=== PATIENT | female | born 1950 | race Hispanic/Latino ===

== ENCOUNTER 2018-06-26 13:04 | Emergency (ER) | payer MEDICARE, OTHER ==
[~2018-06-26] VITALS: Ht 170.2 cm; Wt 65.8 kg
[~2018-06-26 13:04] MED LIST: CALCIUM600 M1; CRANBERRY450 M3; Z.0.METOPROLOL TART2 PO; Z.0.OMEPRAZOLE40 MG PO; Z.0.PROBIOTIC1 EACH PO; Z.0.VAGIFEM10 MCG VG
[2018-06-26] MEDS ORDERED: CEFTRIAXONE SOD 1 GM VIAL IM ONE (13:45)
== END 2018-06-26 13:54 | disposition home or self-care (01) ==
LOC: FSED 13:04
DX: N10 Acute pyelonephritis (principal); I10 Essential (primary) hypertension
CPT/HCPCS: 81003; 99283; J0696

== ENCOUNTER 2020-01-13 15:49 | Emergency (ER) | payer MEDICARE, OTHER ==
[~2020-01-13] VITALS: Ht 167.6 cm; Wt 61.2 kg
--- NOTE | 2020-01-13 17:34 | Diagnostic Imaging Report ---
Examination: CT head without contrast Clinical Indication: Fall. Headaches. Technique: Transaxial noncontrast images from the skull base through the vertex were obtained. Sagittal and coronal reformatted images were done. Dose modulation, iterative reconstruction, and/or weight based adjustment of the mA/kV was utilized to reduce the radiation dose to as low as reasonably achievable. Comparison: None. Findings: Scalp: No abnormalities. Bones: Intact. No fractures. No blastic or lytic lesions. Brain sulci: Appropriate for patient's age. Ventricles: Normal in size and configuration. No hydrocephalus. . Extra-axial space: No abnormalities. Parenchyma: There are patchy areas of low-attenuation within subcortical and periventricular white matter, nonspecific, but could represent microvascular ischemic disease. No masses, hemorrhage, or acute or chronic cortical based vascular insults. Suprasellar region: No abnormalities. Craniocervical junction: The foramen magnum is patent. No Chiari one malformation. Incidental findings: Atherosclerotic calcification of the cavernous and supraclinoid internal carotid and V4 segments of the bilateral vertebral arteries. Impression: 1. No acute intracranial finding. 2. Chronic microvascular ischemic change. Signed by: Dr. Neeta Qureshi M.D. on 01/13/2020 5:30 PM
--- NOTE | 2020-01-13 18:44 | Emergency Department Note ---
History of Present Illnes History of Present Illness Chief Complaint: Head/Face Trauma History of Present Illness This is a 69 year old female fell at home and hit her head, on c [place]adin. Historian: Patient Arrival Mode: Car Onset (how long ago): day(s) (1) Location: head Quality: dull Radiation: Denies non-radiation, Denies back, Denies neck, Denies extremity, Denies abdomen, Denies periumbilical, Denies flank, Denies proximal, Denies distal, Denies other Severity: moderate Duration (how long): day(s) (1) Timing of current episode: constant, intermittent Progression: waxing and waning Chronicity: new Context: Denies recent illness, Denies recent surgery, Denies recent immob ilization, Denies recent travel, Denies trauma/injury, Denies new medications, Denies hx of DVT/PE, Denies non-compliance w/ medications, Denies other Relieving factors: none Exacerbating factors: none Associated symptoms: Reports denies other symptoms Treatments prior to arrival: none Past Medical/Family History Physician Review I have reviewed the patient's past medical and family history. Any updates have been documented here. Past Medical History Recent Fever: No Clinical Suspicion of Infectio: No New/Unexplained Change in Ment: No Past Medical History: Hypertension, CVA Other Medical History: GERD Past Surgical History: Cholecysctectomy, Hysterectomy, T&A, Pacer/AICD Other Surgery: BLADDER SUSPENSIOON ASD REPAIR CARDIAC ABLATION Social History Smoking Cessation: Current every day smoker Counseling Performed: Yes Alcohol Use: Occasional Any Illegal Drug Use: No Physically hurt or threatened: No Other Last Tetanus: OOD Any Pre-Existing Lines (PICC,: No Review of Systems Review of Systems Constitutional: Reports no symptoms EENTM: Reports no symptoms Cardiovascular: Reports no symptoms Respiratory: Reports no symptoms Gastrointestinal: Reports no symptoms Genitourinary: Reports no symptoms Musculoskeletal: Reports no symptoms Integumentary: Reports no symptoms Neurological: Reports headache Psychological: Reports no symptoms Endocrine: Reports no symptoms Hematological/Lymphatic: Reports no symptoms Physical Exam Related Data Allergies: Coded Allergies: No Known Drug Allergies (Verified Allergy, Mild, 08/16/09) Triage Vital Signs Vital Signs Date Time Temp Pulse Resp B/P (MAP) Pulse Ox O2 Delivery O2 Flow Rate FiO2 01/13/20 16:00 98.4 69 18 157/63 98 Room Air Vital signs reviewed: Yes Physical Exam CONSTITUTIONAL Constitutional: Present well-developed, Present well-nourished HENT HENT: Present normocephalic, Present atraumatic, Present oropharynx clear/moist, Present nose normal HENT L/R: Present left ext ear normal, Present right ext ear normal EYES Eyes: Reports PERRL, Reports conjunctivae normal NECK Neck: Present ROM normal PULMONARY Pulmonary: Present effort normal, Present breath sounds normal CARDIOVASCULAR Cardiovascular: Present regular rhythm, Present heart sounds normal, Present capillary refill normal, Present normal rate GASTROINTESTINAL Abdominal: Present soft, Present nontender, Present bowel sounds normal GENITOURINARY Genitourinary: Present exam deferred SKIN Skin: Present warm, Present dry MUSCULOSKELETAL Musculoskeletal: Present ROM normal, Present tenderness NEUROLOGICAL Neurological: Present alert, Present oriented x 3, Present no gross motor or sensory deficits PSYCHOLOGICAL Psychological: Present mood/affect normal, Present judgement normal Results Laboratory Lab results reviewed: Yes Imaging Imaging results reviewed: Yes Assessment & Plan Medical Decision Making MDM HEAD INJURY HEMATOMA Reassessment Reassessment time: 18:44 Reassessment BETTER Assessment & Plan Final Impression: (1) Head injury (2) Acute pain Depart Disposition: HOME, SELF-CARE Last Vital Signs Date Time Temp Pulse Resp B/P (MAP) Pulse Ox O2 Delivery O2 Flow Rate FiO2 01/13/20 16:00 98.4 69 18 157/63 98 Room Air Home Meds Reported Medications Estradiol (Vagifem) 10 Mcg Tablet, 10 MCG VG 2XW /3/12 Metoprolol Tartrate (Metoprolol Tartrate) 25 Mg Tablet, 25 MG PO DAILY /312 Cranberry Fruit (CRANBERRY) 450 Mg Tablet, DAILY /3/12 Lactobacillus Rhamnosus Gg (Probiotic) 1 Each Capsule, 1 EACH PO QAM /09/14 Calcium Carbonate (CALCIUM) 600 Mg Tablet, BID 6/3/12 Omeprazole (Omeprazole) 40 Mg Capsule.dr, 40 MG PO DAILY /3/12 Estradiol (Vagifem) 10 Mcg Tablet, 10 MCG VG 2XW /12 TOMMY LANGLEY MD Jan 13, 2020 18:44
== END 2020-01-13 17:55 | disposition home or self-care (01) ==
LOC: FSED 16:37
DX: S00.83XA Contusion of other part of head, initial encounter (principal); W18.2XXA Fall in (into) shower or empty bathtub, initial encounter; Y93.E1 Activity, personal bathing and showering; Y92.002 Bathroom of unspecified non-institutional (private) residence as the place of occurrence of the external cause; Z79.01 Long term (current) use of anticoagulants; F17.210 Nicotine dependence, cigarettes, uncomplicated
CPT/HCPCS: 70450; 85610; 99283

== ENCOUNTER 2021-01-17 19:30 | Emergency (ER) | payer OTHER, MEDICARE ==
[~2021-01-17] VITALS: Ht 167.6 cm; Wt 59.0 kg
[2021-01-17] MEDS ORDERED: ACETAMINOPHEN 325 MG TAB PO ONE (20:30)
[2021-01-17] MEDS ORDERED: ACETAMINOPHEN 325 MG TAB ONE (20:42)
[2021-01-17 22:35] VITALS: BP 162/72
== END 2021-01-17 22:40 | disposition home or self-care (01) ==
LOC: FSED 20:16
DX: S63.502A Unspecified sprain of left wrist, initial encounter (principal); W01.0XXA Fall on same level from slipping, tripping and stumbling without subsequent striking against object, initial encounter; Y93.01 Activity, walking, marching and hiking; Y92.480 Sidewalk as the place of occurrence of the external cause; I10 Essential (primary) hypertension; I48.91 Unspecified atrial fibrillation; K21.9 Gastro-esophageal reflux disease without esophagitis; Z95.810 Presence of automatic (implantable) cardiac defibrillator; Z95.1 Presence of aortocoronary bypass graft
CPT/HCPCS: 99283

== ENCOUNTER 2025-04-02 16:21 | Emergency (ER) | payer MEDICARE, BC ==
[~2025-04-02 16:21] MED LIST changes: +ASPIRIN EC81 MG PO; +CIPRO500 MG PO; +CITRACAL + D E1 EACH; +CULTURELLE1 EACH; +DICYCLOMINE HCL20 MG PO; +ESTRACE1 MG PO; +FLECAINIDE ACET50 MG; +HYDROCHLOROTH12.5 MG; +LORATADINE10 MG PO; +LOSARTAN POTASS25 MG PO; +METHENAMINE MAND1 GM; +PROTONIX20 MG PO; +VITAMIN C1000 MG PO; +VITAMIN D3125 MCG; +WARFARIN SODIUM3 MG PO; +ZINC30 MG
== END 2025-04-02 16:35 | disposition short-term general hospital (02) ==
LOC: FSED 16:35
DX: R69 Illness, unspecified (principal)